=== PATIENT | female | born 2000 | race Caucasian/White ===

== ENCOUNTER 2022-01-11 01:09 | Emergency (ER) | payer OTHER ==
[~2022-01-11] VITALS: Ht 172.7 cm; Wt 56.7 kg
[2022-01-11 01:12] VITALS: BP 125/71
--- NOTE | 2022-01-11 01:15 | NUR ---
Patient BIB by family/friend from home. C/O Epitaxis x today. Patient reported, had nosebleeding right nasal ~ one and half hours. No blood thinner medications, Hx Anemia. A/O,X4, no SOB, bleeding right nasal, no pain.
--- NOTE | 2022-01-11 01:32 | NUR ---
Dr. King at bedside to exam patient.
--- NOTE | 2022-01-11 01:52 | NUR ---
PT CLEARED FOR DISCHARGE BY DR. JOHNSON. ALL DISCHARGE INSTRUCTIONS PROVIDED BY DR. JOHNSON.
== END 2022-01-11 01:50 | disposition home or self-care (01) ==
LOC: MED 01:09
DX: R04.0 Epistaxis (principal)
CPT/HCPCS: 30901; 30905; 99284